=== PATIENT | female | born 1950 | race Caucasian/White ===

== ENCOUNTER → 2021-01-01 | Outpatient (CLI) | payer MEDICARE | LOC: CT 09:00 | PROVIDERS: ATTEND Internal Medicine Cardiovascular Disease | DX: G45.9 Transient cerebral ischemic attack, unspecified (principal) | CPT/HCPCS: 70450 ==

== ENCOUNTER → 2022-06-27 | Outpatient (CLI) | payer MEDICARE | LOC: CT 08:45 | PROVIDERS: ATTEND Family Medicine | DX: M26.621 Arthralgia of right temporomandibular joint (principal); M26.622 Arthralgia of left temporomandibular joint | CPT/HCPCS: 70486 ==